=== PATIENT | female | born 2005 | race Two or more races ===

== ENCOUNTER 2025-08-15 12:54 | Emergency (ER) | payer MEDICAID, SELFPAY ==
[2025-08-15 12:55] VITALS: BMI 23.0
[2025-08-15 13:57] VITALS: BP 117/75; PULSE 74; RESP 16; TEMP 36.9; O2SAT 99
--- NOTE | 2025-08-15 14:01 | XR_ITS ---
Examination: CT abdomen with intravenous contrast CT pelvis with intravenous contrast 2-D coronal reconstructions 2-D sagittal reconstructions Date and time of exam: August 15, 2025, 1703 hours INDICATIONS: Onset right lower abdominal pain since yesterday. CTDI: vol (mGy) 5.96 DLP: (mGycm) 287 Technique: Multiple axial sections of the abdomen and pelvis have been obtained. 64 slice high-resolution scanner used. 3 mm axial sections have been obtained, post intravenous injection 60 cc [id number] 2-D sagittal, coronal reconstructions obtained. Low dose protocols were performed. One or more of the following dose reduction techniques were used; automated exposure control, adjustment of the mA and/or KV according to patient size, use of iterative reconstruction technique. Findings: No visualized liver or splenic lesion Contracted gallbladder No common bile duct stones. No pancreatic mass Normal adrenal glands No renal or ureteral calculi, no hydronephrosis Aorta normal size The appendix is not diagnostically visualized, however, there is no pericecal inflammatory change No pelvic abscess No bowel obstruction or diverticulitis Anteverted uterus Mild free fluid in the pelvis Osseous structures intact IMPRESSION: The appendix is not diagnostically visualized, however there is no pericecal inflammatory change, no pelvic abscess, the appearance should be clinically correlated Mild free fluid in the pelvis, consider pelvic sonography follow-up
--- NOTE | 2025-08-15 14:02 | PD.EDABDPN ---
ED Abdominal Pain RME/HPI General Chief Complaint: Abdominal Pain Stated complaint: WAS SENT FROM CLINIC TO R/O APPENDICITIS Time seen by provider: 08/15/25 12:58 Arrival date/time: 08/15/25 12:54 19-year-old female patient came in for evaluation regarding right lower quadrant pain. Patient's been sick with flulike symptoms for the last 5 days, and for the last 1 to 2 days, patient has been having right lower quadrant pain, pain is worse with coughing. Went to PCP today and was sent here to rule out appendicitis. No fever no vomiting no diarrhea no constipation. No dysuria. Related Data Previous Rx's ?Medication ?Instructions ?Recorded gentamicin 0.3 % eye drops 1 drop ophthalmic (eye) Q4H #15 mL 09/06/18 ibuprofen 400 mg tablet 400 mg PO Q6H PRN pain #30 tabs 05/29/19 ibuprofen 600 mg tablet 600 mg PO Q8H PRN pain #30 tabs 08/15/25 Allergies Allergy/AdvReac Type Severity Reaction Status Date / Time No Known Allergies Allergy Verified 08/15/25 12:58 Review of Systems Review of Systems Narrative Review of Systems: Review of system reviewed and within normal limits except mentioned in HPI ED Exam Narrative Physical exam: VITAL SIGNS: Reviewed. GENERAL APPEARANCE: Alert and interactive, follows commands, no acute distress, HEAD AND FACE: Non-traumatic. ENT: PERRL, pink conjunctivitis, eyelid no trauma, Mucous membrane moist. NECK: Supple, nontender, no nuchal rigidity. CHEST: No tenderness, no crepitus, no paradoxical movement, no retractions. LUNGS: Clear, well ventilated, symmetric, no rales, no wheezing, no ronchi, no stridor, good breath sounds bilaterally. HEART: Regular rate, regular rhythm, no murmur, no gallops. ABDOMEN: Soft, positive bowel sounds, nondistended, no guarding, right lower quadrant tenderness, no rebound, no masses, RECTAL: Deferred. GENITAL: Deferred. NEUROLOGICAL: Gross motor function intact sensory function intact, Appropriate for age. MUSCULOSKELETAL: low back nontender, full range of motion. EXTREMITIES: Nontender, full range of motion. SKIN: Color pink, dry, no rash, no lacerations, no abrasions, no contusions. LYMPHATICS: Deferred. Course Quality Measures none Orders Category Date Time Status CT Screening NOW Care 08/15/25 14:[address] abdomen pelvis w con Stat Exams 08/15/25 14:01 Completed CBC Stat Lab 08/15/25 14:00 Completed Comprehensive Metabolic Panel Stat Lab 08/15/25 14:00 Completed HCG Qualitative,Urine Stat Lab 08/15/25 14:16 Completed Partial Thromboplastin Time Stat Lab 08/15/25 14:00 Completed Urinalysis, C/S if Indicated Stat Lab 08/15/25 14:16 Completed Vital Signs Vital signs: Vital Signs Temperature 98.4 F 08/15/25 13:57 Pulse Rate 74 08/15/25 13:57 Respiratory Rate 16 08/15/25 13:57 Blood Pressure 117/75 08/15/25 13:57 Pulse Oximetry (%) 99 08/15/25 13:57 Oxygen Delivery Method Room Air 08/15/25 13:57 Abdominal Pain MDM MDM Narrative MDM Narrative:: 19-year-old female patient came in for evaluation regarding right lower quadrant pain. Patient's been sick with flulike symptoms for the last 5 days, and for the last 1 to 2 days, patient has been having right lower quadrant pain, pain is worse with coughing. Went to PCP today and was sent here to rule out appendicitis. No fever no vomiting no diarrhea no constipation. No dysuria. Patient's laboratory workup all came back unremarkable. Urinalysis no UTI. CT scan of the abdomen pelvis showed he appendix is not diagnostically visualized, however there is no pericecal inflammatory change, no pelvic abscess, the appearance should be clinically correlated Mild free fluid in the pelvis, consider pelvic sonography follow-up Results discussed with the patient and family. Patient stable for charged home Patient data External records reviewed:: None Clinical information provided by:: patient Social determinants that could affect healthcare access:: none Patient has the following chronic illnesses:: None How is presenting disease/condition affected by chronic disease/condition?: no chronic disease Evaluation data The following diagnostics were reviewed and interpreted by me:: lab results and radiology exam(s) Lab and/or radiology exams considered but not ordered:: None Interpretation Summary: see above Medications / Prescriptions Medications or Prescriptions considered but not ordered:: None Medication administrations:: See above Consultations Consultation(s) initiated? (list below): No Diagnosis Differential diagnosis abdominal pain: abdominal pain, constipation and small bowel obstruction Most likely diagnosis given after review of the tests above:: Abdominal muscle pain Admission Indicated Admission indicated?: not indicated Admission Request Was there a request for admission?: No Disposition Plan Disposition Plan: Discharge Discharge Attestation Discharge Attestation: The patient and all family members were given an opportunity to ask questions and understood the discharge instructions. Discharge instructions specifically effects, indications for sooner follow up or return to the emergency department, and the expected course of current diagnosis. Patient condition: Stable Discharge Plan Plan Patient Disposition: HOME (Self Care) Discharge Disposition comment: Stable Prescriptions/Referrals Prescriptions/Med Rec: New ibuprofen 600 mg tablet 600 mg PO Q8H PRN (Reason: pain) Qty: 30 0RF No Action gentamicin 0.3 % drops 1 drop OPHTHALMIC Q4H Qty: 15 0RF ibuprofen 400 mg tablet 400 mg PO Q6H PRN (Reason: pain) Qty: 30 0RF Referrals: Yenny Hartley FNP [Primary Care Provider] - In 1 week Problem List Clinical Impression: Abdominal muscle pain Patient/Caregiver Discharge Instructions Discharge Activity: activity as tolerated Education Materials: Understanding the Pain Response Additional Instructions: Thank you for the opportunity for serving you today. You are stable for discharged . You are advised to: Follow-up with your PCP in 1 to 2 days Return to ED for worsening of symptoms Increase oral fluids Take medication as prescribed Print Language: Mongolian Stand Alone Forms: Tr[employer] Award Info., Patient Portal Info Letter
[2025-08-15 14:15] LABS: Basophils # (Auto) 0.0 Thou/mm3 (0.0-0.2); Basophils % (Auto) 1 % (0-2.5); Eosinophils # (Auto) 0.0 Thou/mm3 (0.0-0.5); Eosinophils % (Auto) 1 % (0-10); Hematocrit 38.5 % (36.0-46.0); Hemoglobin 12.8 g/dL (12.0-16.0); Immature Granulocytes Auto 0.01 Thou/mm3 (0.00-0.00); Lymphocytes # (Auto) 2.0 Thou/mm3 (1.0-5.0); Lymphocytes % (Auto) 49 % (10-50); Mean Corpuscular HGB Conc 33.2 g/dl (31.0-37.0); Mean Corpuscular Hemoglobin 29.3 pg (25.0-35.0); Mean Corpuscular Volume 88 fL (80-100); Monocytes # (Auto) 0.4 Thou/mm3 (0.0-0.8); Monocytes % (Auto) 9 % (0-12); Neutrophils # (Auto) 1.7 Thou/mm3 (1.8-7.7); Neutrophils % (Auto) 41 % (37-80); Nucleated Red Blood Cell # 0.00 Thou/mm3 (0.00-0.00); Nucleated Red Blood Cell % 0 /100 WBC (0); Platelet Count 103 Thou/mm3 (140-440); RDW Standard Deviation 39.0 fL (36.4-46.3); Red Blood Count 4.37 Miln/mm3 (4.00-5.20); White Blood Count 4.1 Thou/mm3 (4.5-11.0)
[2025-08-15 14:41] LABS: Partial Thromboplastin Time 30.9 Seconds (22.0-36.0)
[2025-08-15 14:43] LABS: Collection Type, Urine Clean Catch; Squamous Epithelial Cell,Urine 0 /hpf (0-5)
[2025-08-15 14:46] LABS: Albumin, Serum 4.7 gm/dL (3.5-5.0); Albumin/Globulin Ratio 1.7 (1.2-2.2); Alkaline Phosphatase 60 U/L (46-116); Anion Gap 11 (7-16); Aspartate Amino Transferase 22 U/L (0-34); BUN/Creatinine Ratio 9 Ratio (12-20); Bilirubin,Total 0.3 mg/dL (0.3-1.2); Blood Urea Nitrogen 6 mg/dL (9-23); Calcium 8.8 mg/dL (8.3-10.6); Calcium (Corrected) 8.8 mg/dL (8.5-10.1); Carbon Dioxide 26.4 mMol/L (20.0-31.0); Chloride 107 mMol/L (98-107); Creatinine (Component) 0.7 mg/dL (0.6-1.3); Estimated Creatinine Clearance 97.5 mL/min (>60); Globulin 2.7 gm/dL (2.3-3.5); Glucose 97 mg/dL (74-106); Osmolality,Calculated 284 (275-295); Potassium 4.2 mMol/L (3.4-5.1); Sodium 144 mMol/L (136-145); Total Protein 7.4 gm/dL (5.7-8.2); eGFR > 60 See Note
[2025-08-15 14:47] LABS: Alanine Aminotransferase 7 U/L (10-49)
[2025-08-15 15:04] LABS: HCG Qualitative,Urine Negative
[2025-08-15 15:08] LABS: Bacteria,Urine Rare; Bilirubin,Urine Negative (Negative); Blood,Urine 2+ (Negative); Clarity,Urine Clear (Clear/Hazy); Color,Urine Yellow (Lt Yel-Yel); Culture Indicated,Urine Not Indicated; Glucose, Urine Negative (Negative); Ketones,Urine Negative (Negative); Leukocyte Esterase,Urine Negative (Negative); Nitrite,Urine Negative (Negative); PH,Urine 7.0 (5.0-7.0); Protein,Urine Trace (Neg - Trace); RBC,Urine 2 /hpf (0-3); Specific Gravity,Urine 1.029 (1.001-1.035); Urobilinogen,Urine 3.0 mg/dL (0.0-1.0); WBC,Urine 1 /hpf (0-5)
== END 2025-08-15 19:29 | disposition home or self-care (01) ==
PROVIDERS: Nurse Practitioner Family; Emergency Provider Emergency Medicine; PCP Nurse Practitioner Family
DX: M79.18 Myalgia, other site (principal); R10.31 Right lower quadrant pain
CPT/HCPCS: 36415; 74177; 80053; 81001; 81025; 85025; 85730; 99283; A4649; Q9967